=== PATIENT | male | born 2000 | race African-American/Black ===

== ENCOUNTER 2023-06-23 23:10 | Emergency (ER) | payer SELFPAY ==
--- NOTE | ~2023-06-23 | CT_ITS ---
CT of the Abdomen and Pelvis: Indication: Abdominal Technique: 2.5 mm axial scans were obtained through the abdomen and pelvis following intravenous adm inistration of 100 cc of Omnipaque 350. Dose reduction technique was used on this scan by utilizing a utomated exposure control and iterative reconstruction technique. The dose-length product (DLP) was 4 43.17 mGy-cm. Findings: Scans through the lung bases are unremarkable. The liver, spleen, pancreas, adrenals and kidneys are within normal limits. Possible minimal gallblad manda wall thickening. No evidence of aortic aneurysm. No lymphadenopathy. No bowel obstruction or bowel wall thickening. There is no evidence to suggest acute appendicitis. Images through the pelvis were performed. Urinary bladder unremarkable. No pelvic mass seen. No ascit es. No ascites. Impression: Possible minimal gallbladder wall thickening. Consider ultrasound to further evaluate for gallbladder pathology, as indicated. No other significant findings. Reviewed, dictated and finalized at [facility]. Impression: Possible minimal gallbladder wall thickening. Consider ultrasound to further ev aluate for gallbladder pathology, as indicated. No other significant findings.
--- NOTE | ~2023-06-23 | XR_ITS ---
Portable chest x-ray Comparison: None Clinical History: Chest pain Findings: Lungs are clear, without focal consolidation or pleural effusion. Cardiomediastinal silho uette is unremarkable. Bones and soft tissues are unremarkable. Impression: Normal chest. Reviewed, dictated and finalized at location [facility]. Impression: Normal chest.
[2023-06-23 23:14] VITALS: BP 135/85; PULSE 69; RESP 16; TEMP 36.7; O2SAT 100
--- NOTE | 2023-06-23 23:30 | ECG_ITS ---
Measurements Intervals Walker Rate: 63 P: 22 [place]: 155 QRS: 87 QRSD: 81 T: 61 QT: 373 QTc: 383 Interpretive Statements SINUS RHYTHM WITH MARKED SINUS ARRHYTHMIA BASELINE ARTIFACT- I, III, AVR, AVL, AVF, V1-V6 NORMAL ECG NO PREVIOUS ECG AVAILABLE FOR COMPARISON Electronically Signed On 06-24-2023 6:38:31 CDT by Sadiq Gutierrez D.O.
[2023-06-23 23:51] LABS: Basophils Percent Auto 0.3 % (0.2-1.2); Eosinophils Absolute Auto 0.1 K/mm3 (0-0.3); Eosinophils Percent Auto 0.9 % (0-4.4); Immature Granulocyte Absolute 0.04 K/mm3 (0.00-0.031); Immature Granulocyte Percent A 0.3 % (0-0.5); Lymphocytes Absolute Auto 3.07 K/mm3 (0.9-3.2); Lymphocytes Percent Auto 26.1 % (18.3-44.2); Mean Corpuscular HGB Conc 34.2 g/dl (32-36); Mean Corpuscular Hemoglobin 31.3 pg (26-34); Mean Corpuscular Volume 91.6 fl (80-100); Monocytes Absolute Auto 0.6 K/mm3 (0.1-0.6); Monocytes Percent Auto 5.4 % (2.6-8.5); Neutrophils Absolute Auto 7.9 K/mm3 (1.3-6.7); Platelet Count Result 222 k/mm3 (150-375); Red Blood Count 4.15 M/mm3 (4.6-6.20); Red Cell Distribution Width 13.1 % (11.5-14.5); White Blood Count 11.8 K/mm3 (4.5-10.0)
[2023-06-24 00:03] LABS: Alanine Aminotransferase 19 U/L (6-50); Albumin Level 4.5 g/dL (3.5-5.1); Alkaline Phosphatase 68 U/L (38-126); Anion Gap 9 mmol/L (8-16); Aspartate Amino Transferase 35 U/L (17-59); Bilirubin,Total 0.6 mg/dL (0.2-1.3); Blood Urea Nitrogen 13 mg/dL (9-20); Calcium 9.8 mg/dL (8.4-10.2); Carbon Dioxide 26 mmol/L (22-30); Chloride 106 mmol/L (98-107); Estimated CRCL calculation 76 ml/min; Estimated Glomerular Filt Rate > 60; Glucose 133 mg/dL (65-110); Lipase 614 U/L (23-300); Partial Thromboplastin Time 26.3 SECONDS (22.3-36.8); Potassium 3.8 mmol/L (3.4-5.0); Prothrombin Time 13.5 Seconds (11.1-14.7); Sodium 141 mmol/L (137-145)
[2023-06-24 00:15] LABS: Troponin I < 0.012 ng/mL (0.000-0.034)
[2023-06-24] MEDS: SODIUM CHLORIDE 0.9% IV 1,000 ML 999 ML IV CONT ×2 (00:15→02:32)
[2023-06-24] MEDS: PANTOPRAZOLE SODIUM IV 40 MG VIAL IV PUSH (00:16)
[2023-06-24] MEDS: METOCLOPRAMIDE HCL INJ 10 MG/2 ML VIAL IV PUSH (00:16)
[2023-06-24] MEDS: diphenhydrAMINE HCl INJ 50 MG/ML VIAL 25 MG IV PUSH (00:16)
--- NOTE | 2023-06-24 01:49 | ED.NAVMDI ---
HPI - Nausea/Vomiting/Diarrhea General Chief complaint: Nausea/Vomiting/Diarrhea Stated complaint: N/V Time Seen by Provider: 06/23/23 23:58 Source: patient Mode of arrival: ambulatory Limitations: no limitations History of Present Illness HPI Narrative: This is a 23 year old male that presents to the ER for nausea and vomiting. Reports he was smoking some weed tonight. Went to bed. Woke up and thought he needed to use the restroom. He has had nausea, vomiting and epigastric pain since. He tried to take Zofran at home without relief. Denies fever, diarrhea, or dysuria. Related Data Allergies Allergy/AdvReac Type Severity Reaction Status Date / Time No Known Allergies Allergy Verified 06/23/23 23:19 Review of Systems Review of Systems: CONSTITUTIONAL: Denies fever GASTROINTESTINAL: Reports abdominal pain, nausea, vomiting. Denies diarrhea. GENITOURINARY: Denies dysuria All systems reviewed & are unremarkable except as noted in HPI and below PMFSH Past Medical History Medical History (Updated 06/24/23 @ 04:33 by Lsia Lemons PA-C) No active medical problems Social History Social History (Updated 06/24/23 @ 01:53 by Lisa Lemons PA-C) Substance use: current Substance use type: marijuana Exam Narrative: GENERAL: Well-appearing, well-nourished, and in no acute distress. HEAD: Normocephalic, atraumatic. EYES: EOMI. CHEST: Clear to auscultation. No respiratory distress. No wheezes rales or rhonchi HEART: Regular rate and rhythm. No murmur heard. Normal peripheral pulses. ABDOMEN: Soft, nondistended, normal active bowel sounds. Tender to palpation in the epigastrium EXTREMITIES: Normal range of motion. No edema. SKIN: Warm, dry, no rash. NEURO: No focal deficits. Alert and oriented x3. PSYCH: Normal mood and affect Course Course Emergency Course: Patient updated on work-up. Resting comfortably Vital Signs Vital signs: Vital Signs Temperature 98.1 F 06/23/23 23:14 Pulse Rate 69 06/23/23 23:14 Respiratory Rate 16 06/23/23 23:14 Blood Pressure 135/85 06/23/23 23:14 Pulse Oximetry 100 06/23/23 23:14 Oxygen Delivery Room Air 06/23/23 23:14 Temperature 98.1 F 06/23/23 23:14 Pulse Rate 78 06/24/23 04:21 Respiratory Rate 16 06/24/23 04:21 Blood Pressure 132/86 06/24/23 04:21 Pulse Oximetry 98 06/24/23 04:21 Oxygen Delivery Room Air 06/23/23 23:14 MDM - Nausea/Vomiting/Diarrhea MDM Narrative Medical decision making narrative: Patient presents to the emergency department for nausea and vomiting after smoking marijuana tonight. He is afebrile and nontoxic-appearing. His vitals are stable. CBC with mild leukocytosis to 11.8. Metabolic panel without concerning findings. Lipase is mildly elevated, likely due to vomiting. Alcohol level negative. CT scan of the abdomen and pelvis is without acute findings. Chest x-ray without acute cardiopulmonary abnormality. EKG without concerning changes. Patient was updated on work-up. Resting comfortably. Able to tolerate p.o. challenge. Will be given nausea medication as needed. Does report this has been recurrent for him. Will be given information for gastroenterology follow-up. He was given warnings to return to the ER Differential Diagnosis Differential diagnosis: Likely food poisoning, gastroenteritis, drug-induced nausea and vomiting and dehydration Lab Data Attestation: I reviewed the patient's lab results. 06/23/23 23:44 06/23/23 23:44 Labs: Lab Results 06/23/23 Range/Units 23:44 WBC 11.8 H (4.5-10.0) K/mm3 RBC 4.15 L (4.6-6.20) M/mm3 Hgb 13.0 L (14.0-18.0) g/dL Hct 38.0 L (42.0-52.0) % MCV 91.6 (80-100) fl MCH 31.3 (26-34) pg MCHC 34.2 (32-36) g/dl RDW 13.1 (11.5-14.5) % Plt Count 222 (150-375) k/mm3 MPV 10.0 (7.4-10.4) fl Immature Gran % (Auto) 0.3 (0-0.5) % Neut % (Auto) 67.0 (45.5-73.1) % Lymph % (Auto) 26.1
[2023-06-24] MEDS: LORazepam INJ (*CRX) 2 MG/ML VIAL 0.5 MG IV PUSH (02:32)
[2023-06-24 02:56] LABS: Ethanol < 10 mg/dL (<10)
[2023-06-24 04:21] VITALS: BP 132/86; PULSE 78; RESP 16; O2SAT 98
[2023-06-24 04:49] VITALS: BP 138/82; PULSE 64; RESP 15; O2SAT 100
== END 2023-06-24 04:50 | disposition home or self-care (01) ==
PROVIDERS: Emergency Provider Physician Assistant
DX: R11.2 Nausea with vomiting, unspecified (principal); F12.90 Cannabis use, unspecified, uncomplicated
CPT/HCPCS: 36415; 71045; 74177; 80053; 80307; 83690; 84484; 85025; 85610; 85730; 93005; 96361; 96374; 96375; 99284; C9113; J1200; J2060; J2765; J7030; Q9967